=== PATIENT | female | born 1965 | race Asian ===

== ENCOUNTER 2019-03-23 15:27 | Outpatient (REF) | payer BC, SELFPAY ==
--- NOTE | 2019-03-23 14:40 | PAPFT_PTH ---
PATIENT: Bhavna Schwarz LOC: [facility] U#:[id number] AGE/SX: 53/F ROOM: RE03/23/[address]: Jany Joya APRN : 1965 BED: DIS: 03/23/2019 SPEC #: [id number] RECD: 03/23/19 18:20 STATUS: TYRONE REShabbir #: [id number] LANDY: 03/23/19 14:[address]: Jany Joya DEPT: [facility] Cytology RECD BY: Binta Guzman Tissues: 1 - CX/ENDOCX FOR PAP SMEARS Procedures: PAP THIN PREP/UVM Screening HPV DNA PROBE Comments: [id number]
[2019-03-23 18:22] LABS: HGB 14.9 g/dL (12.0-15.5); Mean Corp. HGB Concentration 33.1 g/dL (32.0-36.0); Mean Corpuscular Volume 93.8 fL (80-95); Mean Platelet Volume 9.9 fL (8.0-11.0); Platelet Count 321 x1000/uL (130-400); RBC Distribution Width 12.6 % (11.7-14.6); White Blood Cell Count 6.88 k/cumm (4.4-10.8)
[2019-03-23 18:42] LABS: ALT 26 U/L (14-59); AST 17 U/L (15-37); Albumin 4.1 g/dL (3.4-5.0); Alkaline Phosphatase 76 U/L (46-116); Anion Gap 6.5 mmol/L (3-11); BUN 19 mg/dL (7-18); Bilirubin, Total 0.3 mg/dL (0.2-1.0); CO2 32.5 mmol/L (21.0-32.0); Calcium 9.2 mg/dL (8.5-10.1); Calculated LDL 77 mg/dL; Chloride 103 mmol/L (98-107); Cholesterol 207 mg/dL (50-200); Estimated GFR 47.18 (mL/min/1.73m2); Glucose 84 mg/dL (70-100); HDL Cholesterol 77 mg/dL (40-60); Potassium 4.9 mmol/L (3.5-5.1); Sodium 142 mmol/L (136-145); TSH (W/Ref FT4) 0.74 uIU/mL (0.36-3.74); Total Protein 7.3 g/dL (6.4-8.2); Triglyceride 265 mg/dL (30-150)
== END 2019-03-23 15:47 ==
LOC: LBN 15:27
PROVIDERS: PCP Nurse Practitioner Adult Health; Visit Provider Nurse Practitioner Adult Health
DX: F41.9 Anxiety disorder, unspecified (principal); M06.9 Rheumatoid arthritis, unspecified; Z13.1 Encounter for screening for diabetes mellitus; Z13.220 Encounter for screening for lipoid disorders; Z12.4 Encounter for screening for malignant neoplasm of cervix; Z11.51 Encounter for screening for human papillomavirus (HPV)
CPT/HCPCS: 80053; 80061; 85027; 88142; 84443; 87624

== ENCOUNTER 2019-04-12 01:03 | Outpatient (CLI) | payer BC, SELFPAY ==
--- NOTE | 2019-04-12 10:20 | DI.MAMMO_ITS ---
EXAM: MG MAMMO SCREENING 60 MIN DUR CLINICAL HISTORY: screening with b/l saline implants Z12.39 TECHNIQUE: Mammograms were interpreted according to the usual protocol including computer analysis w [employer] CAD system, tomosynthesis and C-view imaging. COMPARISON: No prior comparison exams are available. FINDINGS: Bilateral saline breast implants are noted which appear intact bilaterally. Implant displaced views were performed in addition to the routine views. The breasts are composed of heterogeneously dense f ibroglandular tissue, breast density, category C. No suspicious masses or suspicious microcalcificat ions are seen. IMPRESSION: BI-RADS category 1, negative mammogram. Yearly screening mammography is recommended. BI-RADS Cat 1 - Negative. Breast Density - Category C - Heterogeneously dense.
== END 2019-04-12 01:23 ==
PROVIDERS: PCP Nurse Practitioner Adult Health; Visit Provider Nurse Practitioner Adult Health
DX: Z12.31 Encounter for screening mammogram for malignant neoplasm of breast (principal); Z98.82 Breast implant status
CPT/HCPCS: 77063; 77067

== ENCOUNTER 2019-10-19 02:44 | Outpatient (CLI) | payer BC, SELFPAY ==
[2019-10-19 13:41] LABS: Abs Immature Grans 0.01 k/cumm (0.0-0.09); Absolute Basophil Count 0.01 k/cumm (0.0-0.2); Absolute Eosinophil Count 0.08 k/cumm (0.0-0.7); Absolute Lymphocyte Count 1.97 k/cumm (1.2-3.4); Absolute Monocyte Count 0.48 k/cumm (0.11-0.7); Absolute Neutrophil Count 3.95 k/cumm (1.2-6.7); Basophils % 0.2; Eosinophils % 1.2; HCT 43.8 % (36.0-46.0); HGB 14.9 g/dL (12.0-15.5); Immature Grans % 0.2 %; Lymphocytes % 30.3; Mean Corpuscular Hemoglobin 32.5 pg (27.0-33.0); Mean Corpuscular Volume 95.6 fL (80-95); Mean Platelet Volume 9.1 fL (8.0-11.0); Monocytes % 7.4; Neutrophils % 60.7; Platelet Count 323 x1000/uL (130-400); RBC 4.58 m/cumm (4.00-5.20); RBC Distribution Width 13.5 % (11.7-14.6)
[2019-10-19 14:38] LABS: ALT 30 U/L (14-59); AST 22 U/L (15-37); Albumin 4.2 g/dL (3.4-5.0); Alkaline Phosphatase 73 U/L (46-116); Anion Gap 7.4 mmol/L (3-11); BUN 17 mg/dL (7-18); Bilirubin, Total 0.4 mg/dL (0.2-1.0); CO2 28.6 mmol/L (21.0-32.0); CREATININE 0.96 mg/dL (0.55-1.02); Calcium 9.4 mg/dL (8.5-10.1); Chloride 101 mmol/L (98-107); Glucose 142 mg/dL (74-106); Potassium 4.9 mmol/L (3.5-5.1); Sodium 137 mmol/L (136-145); Total Protein 7.4 g/dL (6.4-8.2)
[2019-10-19 14:39] LABS: C-Reactive Protein < 0.05 mg/dL (0.0-0.3)
== END 2019-10-19 03:04 ==
PROVIDERS: PCP Nurse Practitioner Adult Health; Visit Provider Nurse Practitioner Family
DX: M05.79 Rheumatoid arthritis with rheumatoid factor of multiple sites without organ or systems involvement (principal)
CPT/HCPCS: 36415; 80053; 85025; 86140

== ENCOUNTER 2020-07-12 03:37 | Outpatient (CLI) | payer BC, SELFPAY ==
[2020-07-12 14:59] LABS: Abs Immature Grans 0.04 10^3/uL (0.0-0.06); Absolute Basophil Count 0.03 10^3/uL (0.0-0.2); Absolute Eosinophil Count 0.14 10^3/uL (0.0-0.7); Absolute Lymphocyte Count 1.62 10^3/uL (1.2-3.4); Absolute Monocyte Count 0.64 10^3/uL (0.1-0.8); Absolute Neutrophil Count 6.95 10^3/uL (1.2-6.7); Basophils % 0.3; Eosinophils % 1.5; HCT 46.3 % (36.0-46.0); HGB 15.5 g/dL (11.2-15.7); Immature Grans % 0.4; Lymphocytes % 17.2; MCH 31.8 pg (27.0-33.0); MCHC 33.5 % (32.0-36.0); MCV 94.9 fL (80-95); MPV 9.2 fL (8.0-11.0); Monocytes % 6.8; Neutrophils % 73.8; Nucleated RBC 0 %; Platelet Count 329 10^3/uL (130-400); RBC 4.88 10^6/uL (3.93-5.22); RDW 12.3 % (11.7-14.6); RDW-SD 42.5 fL; WBC 9.42 10^3/uL (4.4-10.8)
[2020-07-12 15:13] LABS: ALT 32 U/L (14-59); AST 21 U/L (15-37); Albumin 4.1 g/dL (3.4-5.0); Alkaline Phosphatase 91 U/L (46-116); Anion Gap 9.5 mmol/L (3-11); BUN 15 mg/dL (7-18); Bilirubin, Total 0.3 mg/dL (0.2-1.0); CO2 29.5 mmol/L (21.0-32.0); CREATININE 1.3 mg/dL (0.55-1.02); Calcium 9.6 mg/dL (8.5-10.1); Chloride 102 mmol/L (98-107); Estimated GFR 42.85 (mL/min/1.73m2); Glucose 103 mg/dL (74-106); Potassium 4.4 mmol/L (3.5-5.1); Sodium 141 mmol/L (136-145); Total Protein 7.9 g/dL (6.4-8.2)
== END 2020-07-12 03:38 | disposition home or self-care (01) ==
LOC: LBO 03:37
PROVIDERS: PCP Nurse Practitioner Adult Health; Visit Provider Nurse Practitioner Family
DX: M05.79 Rheumatoid arthritis with rheumatoid factor of multiple sites without organ or systems involvement (principal)
CPT/HCPCS: 36415; 80053; 85025

== ENCOUNTER 2021-02-20 02:45 | Outpatient (CLI) | payer OTHER, SELFPAY ==
[2021-02-20 14:04] LABS: Abs Immature Grans 0.02 10^3/uL (0.0-0.06); Absolute Basophil Count 0.02 10^3/uL (0.0-0.2); Absolute Eosinophil Count 0.07 10^3/uL (0.0-0.7); Absolute Lymphocyte Count 2.18 10^3/uL (1.2-3.4); Absolute Monocyte Count 0.61 10^3/uL (0.1-0.8); Absolute Neutrophil Count 4.21 10^3/uL (1.2-6.7); Basophils % 0.3; HCT 42.7 % (36.0-46.0); HGB 14.3 g/dL (11.2-15.7); Immature Grans % 0.3; Lymphocytes % 30.7; MCH 31.6 pg (27.0-33.0); MCHC 33.5 % (32.0-36.0); MCV 94.3 fL (80-95); Monocytes % 8.6; Neutrophils % 59.1; Nucleated RBC 0 %; Platelet Count 250 10^3/uL (130-400); RBC 4.53 10^6/uL (3.93-5.22); RDW 12.1 % (11.7-14.6); WBC 7.11 10^3/uL (4.4-10.8)
[2021-02-20 16:38] LABS: ALT 33 U/L (14-59); AST 18 U/L (15-37); Alkaline Phosphatase 87 U/L (46-116); BUN 16 mg/dL (7-18); Bilirubin, Total 0.4 mg/dL (0.2-1.0); CREATININE 0.9 mg/dL (0.55-1.02); Chloride 105 mmol/L (98-107); Glucose 87 mg/dL (74-106); Potassium 4.1 mmol/L (3.5-5.1); Sodium 143 mmol/L (136-145); Total Protein 7.1 g/dL (6.4-8.2)
== END 2021-02-20 02:46 | disposition home or self-care (01) ==
LOC: LBO 02:45
PROVIDERS: PCP Nurse Practitioner Adult Health; Visit Provider Nurse Practitioner Family
DX: M05.79 Rheumatoid arthritis with rheumatoid factor of multiple sites without organ or systems involvement (principal); Z79.899 Other long term (current) drug therapy
CPT/HCPCS: 36415; 80053; 85025

== ENCOUNTER 2021-10-22 02:24 | Outpatient (CLI) | payer OTHER, SELFPAY ==
[2021-10-22 13:29] LABS: Abs Immature Grans 0.02 10^3/uL (0.0-0.06); Absolute Basophil Count 0.02 10^3/uL (0.0-0.2); Absolute Eosinophil Count 0.07 10^3/uL (0.0-0.7); Absolute Lymphocyte Count 1.81 10^3/uL (1.2-3.4); Absolute Monocyte Count 0.53 10^3/uL (0.1-0.8); Absolute Neutrophil Count 4.82 10^3/uL (1.2-6.7); Basophils % 0.3; HCT 40.9 % (36.0-46.0); HGB 13.4 g/dL (11.2-15.7); Immature Grans % 0.3; Lymphocytes % 24.9; MCH 31.8 pg (27.0-33.0); MCHC 32.8 % (32.0-36.0); MCV 97 fL (80-95); Monocytes % 7.3; Neutrophils % 66.2; Platelet Count 315 10^3/uL (130-400); RBC 4.22 10^6/uL (3.93-5.22); RDW-SD 46.3 fL; WBC 7.27 10^3/uL (4.4-10.8)
[2021-10-22 14:14] LABS: ALT 26 U/L (14-59); AST 19 U/L (15-37); Albumin 3.8 g/dL (3.4-5.0); Alkaline Phosphatase 79 U/L (46-116); Anion Gap 6.9 mmol/L (3-11); BUN 16 mg/dL (7-18); Bilirubin, Total 0.3 mg/dL (0.2-1.0); CO2 30.1 mmol/L (21.0-32.0); Calcium 8.7 mg/dL (8.5-10.1); Chloride 104 mmol/L (98-107); Estimated GFR 57.56 (mL/min/1.73m2); Glucose 121 mg/dL (74-106); Potassium 3.6 mmol/L (3.5-5.1); Sodium 141 mmol/L (136-145); Total Protein 7.2 g/dL (6.4-8.2)
[2021-10-23 16:53] LABS: C-Reactive Protein < 0.05 mg/dL (0.0-0.3)
[2021-10-24 08:57] LABS: Hepatitis B Surface Ag Negative (Negative)
== END 2021-10-22 02:25 | disposition home or self-care (01) ==
PROVIDERS: PCP Nurse Practitioner Adult Health; Visit Provider Nurse Practitioner Family
DX: M05.79 Rheumatoid arthritis with rheumatoid factor of multiple sites without organ or systems involvement (principal); Z79.899 Other long term (current) drug therapy
CPT/HCPCS: 36415; 80053; 87340; 85025; 86140

== ENCOUNTER 2021-12-03 12:29 | Outpatient (CLI) | payer OTHER, SELFPAY ==
[2021-12-05 12:34] LABS: TB Interpretation Negative (Negative)
== END 2021-12-03 12:30 | disposition home or self-care (01) ==
LOC: LBO 12:29
PROVIDERS: PCP Nurse Practitioner Adult Health; Visit Provider Nurse Practitioner Family
DX: M05.79 Rheumatoid arthritis with rheumatoid factor of multiple sites without organ or systems involvement (principal); Z79.899 Other long term (current) drug therapy
CPT/HCPCS: 86480

== ENCOUNTER 2022-03-11 04:34 | Outpatient (CLI) | payer OTHER, SELFPAY ==
[2022-03-11 15:23] LABS: Abs Immature Grans 0.03 10^3/uL (0.0-0.06); Absolute Basophil Count 0.02 10^3/uL (0.0-0.2); Absolute Eosinophil Count 0.07 10^3/uL (0.0-0.7); Absolute Lymphocyte Count 3.16 10^3/uL (1.2-3.4); Absolute Monocyte Count 0.52 10^3/uL (0.1-0.8); Absolute Neutrophil Count 5.28 10^3/uL (1.2-6.7); Basophils % 0.2; Eosinophils % 0.8; HCT 44.7 % (36.0-46.0); HGB 14.4 g/dL (11.2-15.7); Immature Grans % 0.3; Lymphocytes % 34.8; MCH 30.7 pg (27.0-33.0); MCHC 32.2 % (32.0-36.0); MCV 95 fL (80-95); Monocytes % 5.7; Neutrophils % 58.2; Platelet Count 357 10^3/uL (130-400); RBC 4.69 10^6/uL (3.93-5.22); RDW 12.9 % (11.7-14.6); RDW-SD 45.3 fL; WBC 9.08 10^3/uL (4.4-10.8)
[2022-03-11 15:57] LABS: ALT 24 U/L (14-59); AST 15 U/L (15-37); Albumin 3.9 g/dL (3.4-5.0); Alkaline Phosphatase 77 U/L (46-116); Anion Gap 5.3 mmol/L (3-11); BUN 13 mg/dL (7-18); Bilirubin, Total 0.4 mg/dL (0.2-1.0); CO2 30.7 mmol/L (21.0-32.0); CREATININE 0.9 mg/dL (0.55-1.02); Calcium 9.2 mg/dL (8.5-10.1); Chloride 106 mmol/L (98-107); Glucose 134 mg/dL (74-106); Potassium 3.5 mmol/L (3.5-5.1); Sodium 142 mmol/L (136-145); Total Protein 7.6 g/dL (6.4-8.2)
[2022-03-12 11:02] LABS: Hemoglobin A1C 5.8 % (<5.7)
== END 2022-03-11 04:35 | disposition home or self-care (01) ==
LOC: LBO 04:39
PROVIDERS: PCP Nurse Practitioner Adult Health; Visit Provider Nurse Practitioner Family
DX: M05.79 Rheumatoid arthritis with rheumatoid factor of multiple sites without organ or systems involvement (principal); R73.9 Hyperglycemia, unspecified
CPT/HCPCS: 36415; 80053; 83036; 85025

== ENCOUNTER 2022-03-13 11:39 | Outpatient (REF) | payer OTHER, SELFPAY ==
--- NOTE | 2022-03-13 11:00 | PAPFT_PTH ---
PATIENT: Bhavna Schwarz LOC: [facility] U#:[id number] AGE/SX: 56/F ROOM: RE03/13/[address]: Jany Joya APRN : 1965 BED: DIS: 03/13/2022 SPEC #: [id number] RECD: 03/13/22 16:02 STATUS: TYRONE REShabbir #: [id number] LANDY: 03/13/22 11:[address]: Jany Joya DEPT: [facility] Cytology RECD BY: Corina Saenz Tissues: 1 - CX/ENDOCX FOR PAP SMEARS Procedures: PAP THIN PREP/UVM Screening HPV DNA PROBE Comments: [id number]
== END 2022-03-13 11:40 | disposition home or self-care (01) ==
LOC: LBN 11:39
PROVIDERS: PCP Nurse Practitioner Adult Health; Visit Provider Nurse Practitioner Adult Health
DX: Z12.4 Encounter for screening for malignant neoplasm of cervix (principal); Z11.51 Encounter for screening for human papillomavirus (HPV)
CPT/HCPCS: 88142; 87624

== ENCOUNTER → 2022-04-27 01:50 | Outpatient (CLI) | payer OTHER, SELFPAY ==
--- NOTE | 2022-04-27 07:15 | DI.MAMMO_ITS ---
Exam(s) MG MAMMO SCREENING 60 MIN DUR EXAM: MG MAMMO SCREENING 60 MIN DUR CLINICAL HISTORY: breast cancer screening, implants, z12.39 TECHNIQUE: Bilateral full field digital CC and MLO mammographic images were obtained with 3D tomosyn thesis and utilizing computer aided detection (CAD). Implant displaced views were performed in additi on to the routine views. COMPARISON: 2019 FINDINGS: Masses/Architectural Distortion: None seen. Microcalcifications: No suspicious pleomorphic-type are seen. Skin Thickening/Nipple Retraction: None. Bilateral saline implants appear intact. IMPRESSION: 1. No significant interval change with no specific features of malignancy noted. 2. Unless there is more urgent need, screening mammography is recommended, as per [employer] guidelines. BI-RADS Category 1 - Negative Breast Density - Category B - Scattered areas of fibroglandular density A negative radiographic report should not delay biopsy if a dominant or clinically suspicious mass is present. Up to ten percent of cancers are not identified on mammography. A negative report may reinforce clinical impression. Adenosis and dense breasts may obscure an underlying neoplasm. False positive reports average 6 to 10%. Patient will receive a letter notifying them of these results.
--- NOTE | 2022-04-27 08:00 | DI.CTLCSR_ITS ---
Exam(s) CT CHEST LUNG CANCER SCREEN EXAM: CT CHEST LUNG CANCER SCREEN CLINICAL HISTORY: Screening for lung cancer,CURRENT SMOKER, F17.210 TECHNIQUE: Imaging Protocol: Axial computed tomography images with coronal and sagittal reformatted images were created and reviewed. Low dose screening protocol. COMPARISON: No exams were available for comparison FINDINGS: Tracheobronchial tree: No bronchiectasis or mucus plugging.. Mediastinum and Belia: No dominant adenopathy or fluid collection. Pulmonary parenchyma: Minimal apical scarring. No consolidation or dominant measurable mass. No visi ble emphysematous changes. Lung Nodules: 3 millimeter nodule right lung apex. Pleura: No effusion. No pneumothorax. Heart: The heart is not dilated. No coronary artery calcifications are seen. Aorta: Thoracic aorta non-dilated. Upper abdomen: Unremarkable. Bones: Unremarkable for age. Soft Tissues: Bilateral saline breast implants appear intact. IMPRESSION: No suspicious pulmonary nodules. Lung RADS Cat 2 - Benign Appearance / Behavior: Nodules with a very low likelihood of becoming a clin ically active cancer due to size or lack of growth Lung-RADS 1.0 CATEGORIES: Category 0 - Prior chest CT exam(s) being located for comparison. Category 1 - Annual screening in 12 months. No nodules or definitely benign nodules. Category 2 - Annual screening in 12 months. Benign appearance. Nodules with low likelihood of becomin g active cancer. Category 3 - 6-month follow-up. Probably benign. Short-term follow-up suggested. Nodules with low lik elihood of becoming active cancer. Category 4A - 3-month follow-up and CT/PET if >8 mm in size. Suspicious finding. Findings which requi re additional testing. Category 4B - Findings which require additional testing and tissue sampling. Category 4X - Category 3 or 4 nodules with additional features or imaging findings that increases the suspicion of malignancy. Modifier S- Potentially clinically significant findings (non lung cancer) RADIATION DOSE DELIVERED: 80.73mGy.cm Total DLP DATA REPOSITORY: All CT scans at this facility are submitted to the National Radiology Data Registry (NRDR) Dose Index Registry (DIR) with the [employer] (ACR). RADIATION OPTIMIZATION: All CT scans at this facility use at least one of these dose optimization te chniques: automated exposure control; mA and/or kV adjustment per patient size (includes targeted exa ms where dose is matched to clinical indication); or iterative reconstruction.
--- NOTE | 2022-04-27 09:20 | DI.US_ITS ---
APPROVED REPORT EXAM: Comprehensive 2D, Doppler, and color-flow Echocardiogram Patient Location: Out-Patient Force Adjustment Supervisor: Kristen Weldon RDCS (AE) Indications: Aaliyah regurgitation Other Information Study Quality: Fair. Technically limited study due to body habitus. Conclusion Normal left ventricular wall thickness and chamber size. Estimated ejection fraction is 60%. Wall m otion is normal Normal right ventricular size and systolic function Both atria are normal in size Aortic valve is trileaflet. Leaflets are minimally thickened. There is no aortic regurgitation or s tenosis Normal mitral valve with trace regurgitation Normal tricuspid valve with trace regurgitation Normal estimated right ventricular systolic pressure, 18 mmHg Wall motion Left Ventricle The left ventricle is normal size. The left ventricular systolic function is normal. The left ventric ular ejection fraction is within the normal range. There is normal left ventricular wall thickness. T here is normal LV segmental wall motion. There is no ventricular septal defect visualized. LVEF is 60 %. Right Ventricle Right ventricle is grossly normal in size. Right ventricular systolic function is grossly normal. The RVSP is 18.3 mmHg. Atria The left atrium size is normal. The right atrium size is normal. The interatrial septum is intact wit h no evidence for an atrial septal defect. Aortic Valve Aortic valve leaflets are minimally thickened Aortic valve is trileaflet. There is no aortic valvular stenosis. No aortic regurgitation is present. Mitral Valve The mitral valve is normal in structure. No evidence of mitral valve stenosis. Trace mitral regurgita tion. Tricuspid Valve The tricuspid valve is normal in structure. There is no tricuspid valve stenosis. Trace tricuspid reg urgitation. Pulmonic Valve The pulmonary valve is normal in structure. There is no pulmonic valvular stenosis. There is no pulmo arturo valvular regurgitation. Great Vessels The aortic root is normal in size. Ascending aorta is not well visualized. IVC is normal in size and collapses >50% with inspiration. Pericardium There is no pericardial effusion. 2D Dimensions IVSD d PLAX 0.75 cm F: 0.6-1.0 LV Vol A2C d MOD 52.6 mL LVPW d PLAX 0.75 cm F: 0.6 - 1.0 LV Vol A4C d MOD 69.2 mL LVID d PLAX 3.98 cm F: 3.8 - 5.2 LA Area A4C s MOD 10.35 cm2 LVDs 2.75 cm F: 2.2 - 3.5 LA Area A2C s MOD 10.45 cm2 Ao Root d 2.98 cm F: 2.7 - 3.3 LV EF A4C MOD 60.9 % RA Area A4C 11.98 cm2 LV EF A2C MOD 60.5 % LV EF Teichholz 58.3 % LV EF Biplane MOD 60.7 % LVEF (Beaulieu's) 60.74 % F: 54 - 74 SV 37.96 mL LV Volume 62.50 mL F: 46 - 106 LV Vol Biplane MOD 62.5 mL FS 30.35 % M-Mode TAPSE 1.83 cm (M/F) >1.7 LV Diastology MV E' medial 0.100 (>0.07 m/s) E/A Ratio 1.0 LV E/e MED 6.35 (<14) MV E Vmax 0.63 (0.4-1.3 m/s) MV E' lateral 0.129 (>0.1 m/s) MV A Vmax 0.65 (0.4-1.3 m/s) LV E/e LAT 4.90 (<14) MV E/A Ratio 0.97 MV E/E' medial 6.36 MV E/E' lateral 4.92 Aortic Valve LVOT Area 2.90 cm2 AoV Area Vmax 2.44 cm2 LVOT Vmax 0.96 m/s MARIA Mean Harjit. 2.15 cm2 LVOT Mean Harjit. 0.61 m/s LVOT Peak Grad 3.7 mmHg LVOT Mean Grad 1.8 mmHg LVOT VTI 0.186 m LVOT Diam s 1.90 cm AoV Vmax 1.14 m/s Velocity Ratio 0.84 AoV Mean Harjit. 0.82 m/s AoV Peak Grad 5.2 mmHg LVOT SV 53.87 mL AoV Mean Grad 3.0 mmHg AoV VTI 0.200 m AoV Area VTI 2.69 cm2 Mitral Valve MV DT 247 (160-240 msec) MV PHT 72 msec MV Area PHT 3.07 cm2 Pulmonary Valve PV Vmax 0.96 (0.5-1.5 m/s) RVOT Peak Gr. 3.04 mmHg PV Peak Grad 3.7 mmHg RVOT Mean Gr. 1.70 mmHg PV Mean Grad 2.1 mmHg RVOT VTI 0.170 m PV VTI 0.211 m RVOT Vmax 0.87 m/s Tricuspid Valve TR Peak Grad 15.2 mmHg TR Vmax 1.96 m/s RA Pressure 3.00 mmHg RVSP (TR) 18.3 mmHg
== END ==
PROVIDERS: PCP Nurse Practitioner Adult Health; Visit Provider Nurse Practitioner Adult Health
DX: Z86.79 Personal history of other diseases of the circulatory system (principal); Z12.39 Encounter for other screening for malignant neoplasm of breast; F17.200 Nicotine dependence, unspecified, uncomplicated; F17.210 Nicotine dependence, cigarettes, uncomplicated; I34.0 Nonrheumatic mitral (valve) insufficiency
CPT/HCPCS: 71271; 77063; 77067; 93306

== ENCOUNTER 2022-06-02 11:33 | Emergency (ER) | payer OTHER, SELFPAY ==
[2022-06-02 11:38] VITALS: BP 127/75; PULSE 87; RESP 16; TEMP 36.7; O2SAT 100
[2022-06-02 12:30] VITALS: BP 124/81; PULSE 83; RESP 16; TEMP 35.2; O2SAT 100
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
[2022-06-02] MEDS: Acetaminophen 500 MG TAB 1000 MG PO (12:55)
[2022-06-02] MEDS: Cyclobenzaprine 10 MG TAB PO (12:55)
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
== END 2022-06-02 14:02 | disposition home or self-care (01) ==
PROVIDERS: Emergency Provider Nurse Practitioner Family; PCP Nurse Practitioner Adult Health
DX: S39.012A Strain of muscle, fascia and tendon of lower back, initial encounter (principal); S80.02XA Contusion of left knee, initial encounter; V89.2XXA Person injured in unspecified motor-vehicle accident, traffic, initial encounter
CPT/HCPCS: 99283; 72110; 99284

== ENCOUNTER 2023-10-22 13:10 | Outpatient (CLI) | payer SELFPAY ==
[2023-10-22 16:47] LABS: Abs Immature Grans 0.02 10^3/uL (0.0-0.06); Absolute Basophil Count 0.04 10^3/uL (0.0-0.2); Absolute Eosinophil Count 0.06 10^3/uL (0.0-0.7); Absolute Lymphocyte Count 1.88 10^3/uL (1.2-3.4); Absolute Monocyte Count 0.53 10^3/uL (0.1-0.8); Absolute Neutrophil Count 5.82 10^3/uL (1.2-6.7); Basophils % 0.5 %; Eosinophils % 0.7 %; HCT 42.3 % (36.0-46.0); HGB 13.9 g/dL (11.2-15.7); Immature Grans % 0.2 %; Lymphocytes % 22.5 %; MCHC 32.9 % (32.0-36.0); MCV 98 fL (80-95); Monocytes % 6.3 %; Neutrophils % 69.8 %; Platelet Count 328 10^3/uL (130-400); RBC 4.34 10^6/uL (3.93-5.22); RDW 12.5 % (11.7-14.6); RDW-SD 44.8 fL; WBC 8.35 10^3/uL (4.4-10.8)
[2023-10-22 17:52] LABS: ALT 16 U/L (14-59); AST 12 U/L (15-37); Albumin 3.9 g/dL (3.4-5.0); Alkaline Phosphatase 71 U/L (46-116); Anion Gap 7.5 mmol/L (3-11); BUN 16 mg/dL (7-18); Bilirubin, Total 0.4 mg/dL (0.2-1.0); CO2 29.5 mmol/L (21.0-32.0); Calcium 9.4 mg/dL (8.5-10.1); Chloride 104 mmol/L (98-107); Estimated GFR 65.71 (mL/min/1.73m2); Glucose 97 mg/dL (74-106); Potassium 4.1 mmol/L (3.5-5.1); Sodium 141 mmol/L (136-145); Total Protein 7.5 g/dL (6.4-8.2)
== END 2023-10-22 13:11 | disposition home or self-care (01) ==
LOC: LBO 13:11
PROVIDERS: PCP Nurse Practitioner Adult Health; Visit Provider Internal Medicine Rheumatology
DX: Z79.899 Other long term (current) drug therapy (principal); M05.79 Rheumatoid arthritis with rheumatoid factor of multiple sites without organ or systems involvement
CPT/HCPCS: 36415; 80053; 85025

== ENCOUNTER 2024-10-04 13:50 | Outpatient (CLI) | payer BC, SELFPAY ==
--- NOTE | 2024-10-04 13:45 | RT.EKG_ITS ---
APPROVED REPORT Exam: Resting ECG Reason for Exam: Palpitations; irregular heartbeat Patient Location: O HR:72 bpm ECG Measurements Heart Rate 72 AXIS MT 177 P 37 QRSd 77 QRS 71 QT 387 T 69 QTc 424 Conclusion Sinus rhythm...normal P axis, V-rate 50- 99 Normal Electrocardiogram
== END 2024-10-04 13:51 | disposition home or self-care (01) ==
LOC: DI.KIM 13:51
PROVIDERS: PCP Nurse Practitioner Adult Health; Visit Provider Nurse Practitioner Family
DX: R00.2 Palpitations (principal)
CPT/HCPCS: 93010

== ENCOUNTER 2024-10-11 02:43 | Outpatient (CLI) | payer BC, SELFPAY ==
[2024-10-11 08:42] LABS: Abs Immature Grans 0.03 10^3/uL (0.0-0.06); Absolute Basophil Count 0.03 10^3/uL (0.0-0.2); Absolute Eosinophil Count 0.19 10^3/uL (0.0-0.7); Absolute Monocyte Count 0.55 10^3/uL (0.1-0.8); Absolute Neutrophil Count 4.62 10^3/uL (1.2-6.7); Basophils % 0.4 %; Eosinophils % 2.6 %; HCT 40.5 % (36.0-46.0); HGB 13.4 g/dL (11.2-15.7); Immature Grans % 0.4 %; MCH 32.1 pg (27.0-33.0); MCHC 33.1 % (32.0-36.0); MCV 97 fL (80-95); Monocytes % 7.4 %; Neutrophils % 62.2 %; Platelet Count 341 10^3/uL (130-400); RBC 4.17 10^6/uL (3.93-5.22); RDW 13.2 % (11.7-14.6); RDW-SD 46.3 fL; WBC 7.42 10^3/uL (4.4-10.8)
[2024-10-11 09:38] LABS: ALT 28 U/L (14-59); AST 23 U/L (15-37); Albumin 3.5 g/dL (3.4-5.0); Alkaline Phosphatase 86 U/L (46-116); Anion Gap 1.8 mmol/L (3-11); BUN 11 mg/dL (7-18); Bilirubin, Total 0.6 mg/dL (0.2-1.0); CO2 30.2 mmol/L (21.0-32.0); CREATININE 0.9 mg/dL (0.55-1.02); Calcium 8.7 mg/dL (8.5-10.1); Calculated LDL 171 mg/dL (<100); Chloride 105 mmol/L (98-107); Cholesterol 250 mg/dL (<200); Glucose 110 mg/dL (74-106); HDL Cholesterol 68 mg/dL (>or=50); Potassium 4.2 mmol/L (3.5-5.1); Sodium 137 mmol/L (136-145); TSH (W/Ref FT4) 1.64 uIU/mL (0.36-3.74); Total Protein 6.9 g/dL (6.4-8.2); Triglyceride 58 mg/dL (<150)
[2024-10-11 09:53] LABS: Hemoglobin A1C 5.7 % (<5.7)
[2024-10-11 18:11] LABS: Rheumatoid Factor 66.7 IU/mL (<12.0)
[2024-10-12 09:13] LABS: Cyclic Citrullinated Peptide <2.5 U/mL (<5.0)
== END 2024-10-11 02:44 | disposition home or self-care (01) ==
LOC: LBO 02:44
PROVIDERS: Internal Medicine Rheumatology; Nurse Practitioner Family; Absent Provider Nurse Practitioner Adult Health; PCP Nurse Practitioner Adult Health; Referring Provider Nurse Practitioner Adult Health; Visit Provider Nurse Practitioner Adult Health
DX: R00.2 Palpitations (principal); Z00.00 Encounter for general adult medical examination without abnormal findings
CPT/HCPCS: 36415; 80053; 80061; 86200; 83036; 84443; 85025; 86431

== ENCOUNTER 2024-10-16 10:26 | Outpatient (CLI) | payer BC, SELFPAY | END 2024-10-16 10:27 | disposition home or self-care (01) | PROVIDERS: PCP Nurse Practitioner Adult Health; Referring Provider Nurse Practitioner Adult Health; Visit Provider Nurse Practitioner Adult Health | DX: R00.2 Palpitations (principal) | CPT/HCPCS: 93246 ==

== ENCOUNTER 2024-11-01 00:28 | Outpatient (CLI) | payer BC, SELFPAY ==
--- NOTE | 2024-11-01 13:30 | DI.US_ITS ---
APPROVED REPORT EXAM: Comprehensive 2D, Doppler, and color-flow Echocardiogram Patient Location: Out-Patient Grooming Assistant: Kristen Weldon RDCS (AE) Indications: SOB, Mitral regurgitation, Tricuspid regurgitation Other Information Study Quality: Adequate Conclusion Normal left ventricular wall thickness and chamber size. Ejection fraction is 60%. Wall motion is normal Normal right ventricular size and function Both atria are normal in size There are no structural valvular abnormalities Trace to mild mitral regurgitation Trace tricuspid regurgitation with estimated right ventricular systolic pressure of 22 mmHg Wall motion Left Ventricle The left ventricle is normal size. The left ventricular systolic function is normal. The left ventricular ejection fraction is within the normal range. There is normal left ventricular wall thickness. There is normal LV segmental wall motion. There is no ventricular septal defect visualized. LVEF is 60%. Right Ventricle The right ventricle is normal size. The right ventricular systolic function is normal. Atria The left atrium size is normal. The right atrium size is normal. The interatrial septum is intact with no evidence for an atrial septal defect. Aortic Valve The aortic valve is normal in structure. Aortic valve is trileaflet. There is no aortic valvular stenosis. No aortic regurgitation is present. Mitral Valve The mitral valve is normal in structure. No evidence of mitral valve stenosis. Trace to mild mitral regurgitation. Tricuspid Valve The tricuspid valve is normal in structure. There is no tricuspid valve stenosis. Trace tricuspid regurgitation. The RVSP is 21.9_ mmHg. Pulmonic Valve The pulmonary valve is normal in structure. There is no pulmonic valvular stenosis. There is no pulmonic valvular regurgitation. Great Vessels The aortic root is normal in size. Ascending aorta is not well visualized. Aortic arch is not well visualized. IVC is normal in size and collapses >50% with inspiration. Pericardium There is no pericardial effusion. 2D Dimensions IVSD d PLAX 0.70 cm F: 0.6-1.0 Ao Root d 2.91 cm F: 2.7 - 3.3 LVPW d PLAX 0.74 cm F: 0.6 - 1.0 LVID d PLAX 4.30 cm F: 3.8 - 5.2 LVDs 3.03 cm F: 2.2 - 3.5 LV EF Teichholz 56.7 % FS 29.47 % LV EDV (Teich) 82.7 mL LV ESV (Teich) 35.8 mL M-Mode TAPSE 1.93 cm (M/F) >1.7 Auto EF LV EDV A4C 59.1 mL LV EDV A2C 69.7 mL LV EDV BP 64.0 mL LV ESV A4C 24.8 mL LV ESV A2C 28.1 mL LV ESV BP 27.0 mL LVEF(%) A4C 58.0 % LVEF(%) A2C 59.7 % LVEF(%) BP 57.8 % LV SV A4C 34.3 ml LV SV A2C 41.6 ml LV SV BP 37.0 ml LV CO A4C 2.5 L/min LV CO A2C 3.0 L/min LV CO BP 2.7 L/min HR A4C 71.86 BPM HR A2C 72.14 BPM LV EDV Index (BP) LA Volume LA Length A4C 4.4 cm LA Length A2C 4.6 cm LA Area A4C s 9.76 cm2 LA Area A2C s 10.11 cm2 LA Vol A4C A-L 18.56 mL LA Vol A2C A-L 18.78 mL LA Vol Biplane A-L 19.2 mL LA Vol/BSA A4C A-L LA Vol/BSA A2C A-L LA Vol/BSA BP A-L 11.1 mL/m2 LA Vol A4C MOD 17.1 mL LA Vol A2C MOD 17.5 mL LA Vol BP MOD 17.8 mL RA Volume RA Area A4C 9.0 cm2 RA ESV A4C (A-L) 16.5mL RA Vol/BSA A4C A-L RA Length A4C 4.2 cm RA ESV A4C (MOD) 15.5mL LV Diastology MV E' medial 0.103 (>0.07 m/s) MV E Vmax 0.71 (0.4-1.3 m/s) MV E/E' MED 6.92 (<14) MV A Vmax 0.90 (0.4-1.3 m/s) E/A Ratio 0.8 Aortic Valve AoV Vmax 1.31 m/s LVOT Vmax 1.03 m/s AoV Peak Grad 6.8 mmHg LVOT Peak Grad 4.2 mmHg AoV Area (Vmax) 2.15 cm2 LVOT VTI 0.210 m AoV VTI 0.287 m LVOT Mean Grad 2.3 mmHg AoV Mean Harjit. 0.94 m/s LVOT SV 57.44 mL AoV Mean Grad 4.0 mmHg LVOT Diam s 1.85 cm AoV Area (VTI) 2.00 cm2 AV Regurg Peak Gr. 6.84 mmHg Velocity Ratio 0.79 Mitral Valve MV DT 237 (160-240 msec) MV Vmax TIPS 0.75 m/s MV Mean Grad 1.2 (<2mmHg) MV VTI 0.269 m Pulmonary Valve PV Vmax 0.93 (0.5-1.5 m/s) RVOT Vmax 0.85 m/s PV Peak Grad 3.4 mmHg RVOT Peak Gr. 2.9 mmHg PV Mean Harjit 0.69 m/s RVOT VTI 0.187 m PV Mean Grad 2.1 mmHg RVOT Mean Gr. 1.7 mmHg Tricuspid Valve RA Pressure 3.00 mmHg TR Vmax 2.17 m/s TV S' 0.14 m/s TR Peak Grad 18.8 mmHg RVSP (TR) 21.9 mmHg
== END 2024-11-01 00:48 ==
LOC: DI 00:28
PROVIDERS: PCP Nurse Practitioner Adult Health; Visit Provider Internal Medicine Cardiovascular Disease
DX: I34.0 Nonrheumatic mitral (valve) insufficiency (principal); I07.1 Rheumatic tricuspid insufficiency; M06.9 Rheumatoid arthritis, unspecified
CPT/HCPCS: 93306

== ENCOUNTER 2024-11-16 06:56 | Outpatient (CLI) | payer BC, SELFPAY ==
--- NOTE | 2024-11-16 08:39 | W.CARDEVENT ---
Date of service: 11/16/24 Time of Service: 08:40 Cardiac Event Recorder Referring Provider:: Jany Joya Indications:: Palpitations Cardiac Event Note: This is a cardiac event monitor. Patient was monitored for 7 days and 13 hours Rhythm throughout was sinus with an average heart rate of 82. Minimum was 50, maximum 174 There was 15 premature ventricular contractions There were 122 atrial premature beats There was no atrial fibrillation, no SVT, no high-grade AV block, no pauses greater than 3 seconds Reported symptoms correlated to sinus rhythm
== END 2024-11-16 06:57 | disposition home or self-care (01) ==
LOC: CARDOPNVT 06:56
PROVIDERS: PCP Nurse Practitioner Adult Health; Visit Provider Internal Medicine Cardiovascular Disease
DX: R00.2 Palpitations (principal); I49.3 Ventricular premature depolarization; I49.1 Atrial premature depolarization
CPT/HCPCS: 93248

== ENCOUNTER 2025-03-02 03:07 | Outpatient (CLI) | payer BC, SELFPAY ==
--- NOTE | 2025-03-02 14:27 | DI.RAD_ITS ---
Exam(s) XR KNEE LT 3V AP,LAT,REGGIE EXAM: XR KNEE LT 3V AP,LAT,REGGIE CLINICAL HISTORY: PROGRESSION OF CHRONIC L KNEE PAIN, M25.562 G89.29. TECHNIQUE: 2D digital imaging was performed of the left knee. Three images were obtained. AP, lateral and PA tunnel views were obtained. COMPARISON: No exams were available for comparison FINDINGS: BONES: No acute fracture is present. No bony destructive lesion is seen. There has been a prior ACL repair. JOINTS: There small osteophytes at the posterior patella. No joint effusion is seen. No loose body. SOFT TISSUE: Normal. IMPRESSION: Mild degenerative changes of the left knee. DATA REPOSITORY: RADIATION DOSE DELIVERED:
== END 2025-03-02 03:27 ==
LOC: DI 03:07
PROVIDERS: PCP Nurse Practitioner Adult Health; Visit Provider Internal Medicine Rheumatology
DX: M25.562 Pain in left knee (principal)
CPT/HCPCS: 73562

== ENCOUNTER → 2025-04-21 14:31 | Outpatient (CLI) | payer BC, SELFPAY ==
--- NOTE | 2025-04-21 | DI.RAD_ITS ---
Exam(s) XR FINGER RT MIDDLE EXAM: XR FINGER RT MIDDLE CLINICAL HISTORY: CONCERN FOR RETAINED FOREIGN BODY, PROXIMAL TO NAIL FOLD ICD-10: M79.644. TECHNIQUE: 2D digital imaging was performed. Three views. COMPARISON: No exams were available for comparison FINDINGS: BONES: No acute fracture is present. No bony destructive lesion is seen. JOINTS: No dislocation present. SOFT TISSUE: There is soft tissue swelling just proximal to the nail bed. No foreign bodies seen. IMPRESSION: Soft tissue swelling proximal to nail bed. No foreign body or abnormal gas collection. The preliminary [facility] report was reviewed. DATA REPOSITORY: RADIATION DOSE DELIVERED:
--- NOTE | 2025-04-21 13:06 | DI.[facility]_ITS ---
Addendum created by María Molina MD on 04/21/2025 1:06:20 PM EST: Addendum: No foreign body identified Initial report created on 04/21/2025 1:05:39 PM EST: PROCEDURE INFORMATION: Exam: XR Right Finger(s) Exam date and time: 04/21/2025 12:28 PM Age: 59 years old Clinical indication: Other: Pain and infection from foriegn body TECHNIQUE: Imaging protocol: Radiologic exam of the right fingers. Views: Minimum 2 views. COMPARISON: No relevant prior studies available. FINDINGS: Bones/joints: There is no evidence of acute fracture.There is no evidence of malalignment or dislocation. Soft tissues: Normal. IMPRESSION: There is no evidence of acute fracture.There is no evidence of malalignment or dislocation. Dictated and Authenticated by: María Molina MD. Orderin DIYA ESPINOZA MD
== END ==
LOC: DI 05-16 14:31
PROVIDERS: PCP Nurse Practitioner Adult Health; Visit Provider Nurse Practitioner Family
DX: M79.644 Pain in right finger(s) (principal)
CPT/HCPCS: 73140